=== PATIENT | female | born 1970 | race Caucasian/White ===

== ENCOUNTER → 2023-10-31 13:40 | Outpatient (REF) | payer OTHER, SELFPAY | LOC: RAD 13:40 | PROVIDERS: ATTENDING PHYSICIAN Nurse Practitioner Family | DX: M79.662 Pain in left lower leg (principal) | CPT/HCPCS: 93971 ==

== ENCOUNTER 2023-12-04 18:32 | Emergency (ER) | payer OTHER, SELFPAY ==
[2023-12-04 18:33] VITALS: BP 134/71
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
[2023-12-04] MEDS: TYLENOL 1000 MG PO (19:00)
[2023-12-04] MEDS: NSS 1000 IV (19:00)
[2023-12-04 19:01] VITALS: BP 110/78; BMI 22.3
[2023-12-04] MEDS: TORADOL 30 MG IV (19:01)
[2023-12-04] MEDS: DECADRON 20 MG IV (19:01)
[2023-12-04 19:10] LABS: % Basophils 0.2 % (0-2); % Eosinophils 0.4 % (0-6); % Immature Granulocytes 0.2 % (0-0.5); % Lymphocytes 7.5 % (20.5-51.1); % Monocytes 13.6 % (1.7-9.3); % Neutrophils 78.1 % (42.2-75.2); Absolute Lymphocytes 0.4 10^3/uL (1.2-3.4); Absolute Monocytes 0.7 10^3/uL (0.1-0.6); Hematocrit 37.5 % (37.0-47.0); Hemoglobin 13.5 g/dL (12.0-16.0); Mean Corpuscular Hgb 29.9 pg (27.0-31.0); Mean Corpuscular Volume 83.1 fL (81.0-99.0); Nucleated Red Blood Cells % 0 %; Platelet Count 199 10^3/uL (130-400); Red Blood Cell Count 4.51 10^6/uL (4.20-5.40); Red Cell Dist. Width 13.7 % (11.5-14.5); White Blood Cell Count 5.1 10^3/uL (4.8-10.8)
[2023-12-04 19:21] LABS: HCG, Serum Qualitative Screen Negative
[2023-12-04 19:25] LABS: ALT (SGPT) 21 U/L (0-35); AST (SGOT) 30 U/L (14-36); Albumin 4.5 g/dl (3.5-5.0); Alkaline Phosphatase 61 U/L (38-126); Blood Urea Nitrogen 15 mg/dl (7-17); Calcium 9.9 mg/dl (8.4-10.2); Carbon Dioxide 21 mmol/L (22-30); Chloride 101 mmol/L (98-107); Estimated Creatinine Clearance 93 ml/min; Glucose 166 mg/dl (70-99); Potassium 3.8 mmol/L (3.5-5.1); Sodium 133 mmol/L (135-145); Total Bilirubin 0.5 mg/dl (0.2-1.3); eGFR > 60.00
[2023-12-04 20:00] VITALS: BP 117/66
[2023-12-04 21:09] VITALS: BP 102/50
== END 2023-12-04 21:44 | disposition home or self-care (01) ==
LOC: EMR 18:32
PROVIDERS: Clinical Nurse Specialist Family Health; EMERGENCY PHYSICIAN Student in an Organized Health Care Education/Training Program; FAMILY PHYSICIAN Family Medicine
DX: R51.9 Headache, unspecified (principal); M54.2 Cervicalgia; V49.9XXA Car occupant (driver) (passenger) injured in unspecified traffic accident, initial encounter; E03.9 Hypothyroidism, unspecified; F41.8 Other specified anxiety disorders; K22.0 Achalasia of cardia; D64.9 Anemia, unspecified
CPT/HCPCS: 99284; 96374; 96375; 96361; 70450; 72125; 80053; 84703; 85025